=== PATIENT | female | born 1960 | race Caucasian/White ===

== ENCOUNTER 2022-04-23 12:37 | Outpatient (CLI) | payer BC | END 2022-04-23 12:38 | disposition home or self-care (01) | LOC: CSHMAMMO 12:37 | PROVIDERS: ATTEND Obstetrics & Gynecology | DX: Z12.31 Encounter for screening mammogram for malignant neoplasm of breast (principal) | CPT/HCPCS: 77063; 77067 ==

== ENCOUNTER 2023-05-28 13:14 | Outpatient (CLI) | payer BC | END 2023-05-28 13:15 | disposition home or self-care (01) | LOC: CSHMAMMO 13:14 | PROVIDERS: ATTEND Obstetrics & Gynecology | DX: Z12.31 Encounter for screening mammogram for malignant neoplasm of breast (principal) | CPT/HCPCS: 77063; 77067 ==

== ENCOUNTER 2024-06-02 12:43 | Outpatient (CLI) | payer BC | END 2024-06-02 12:44 | disposition home or self-care (01) | LOC: CSHMAMMO 12:43 | PROVIDERS: ATTEND Obstetrics & Gynecology | DX: Z12.31 Encounter for screening mammogram for malignant neoplasm of breast (principal) | CPT/HCPCS: 77063; 77067 ==